=== PATIENT | female | born 1930 | race Caucasian/White ===

== ENCOUNTER 2018-11-30 09:34 | Day surgery (SDC) | payer MEDICARE ==
[~2018-11-30] VITALS: Ht 160 cm; Wt 52.2 kg
[~2018-11-30 09:34] MED LIST: ACETAMINOPHEN 325 MG TAB PO PRN; APAP325T4 PO; BALANCED SALT IRRIGATION SOLUTION 500ML BAG (FOR OR EYE MACHINE) As Ordered ONE; CEFUROXIME 1MG/0.1ML INTRACAMERAL INJ As Ordered ONE; CYCLOPENTOLATE 2% OPHTH SOLN 2ML BTL OS ONE; DESL5TAB4 PO; ESTR0.1C5 VA; FLON1SPR; GABA-1171 PO; HEALON DUET PRO(HEALON 10MG/ML 0.55ML & HEALON ENDOCOAT 30MG/ML 0.85ML) As Ordered ONE; LEVO25TA5 PO; LIDOCAINE 1% SDV 5 ML VIAL As Ordered ONE; LIDOCAINE 3.5 % 1ML OPHTH TOPICAL GEL OU ONE; LOSA50TA5 PO; METO1TAB32 PO; MIDAZOLAM INJ 2 MG/2 ML VIAL (J2250) As Ordered ONE; MULTCAP PO; OFLOXACIN 0.3 % (OCUFLOX) OPTH SOL 5ML OS ONE; OMEP20CA3 PO; PHENYLEPHRINE 2.5% OPHTH SOL 2ML OS ONE; PHENYLEPHRINE HCL 10 % OPHTH. SOL 5ML OS PRN; POVIDONE-IODINE 5% OPHTH PREP SOL 30ML As Ordered ONE; PRAV10TA3 PO; PROAAER10 INH; PROPARACAINE 0.5% OPHTH SOL 15ML OS PRN; SERT25TA85 PO; TROPICAMIDE 1% OPHTH SOLN 2ML OS ONE; VITAD1000T PO; ZOLP10TA2 PO; fentaNYL 100 MCG/2 ML INJECTION (J3010) As Ordered ONE
[2018-11-30] MEDS ORDERED: AcetaZOLAMIDE 500 MG ER CAP As Ordered ONE (12:51)
[2018-11-30] MEDS ORDERED: TRIMETHOBENZAMIDE 300 MG CAP PO PRN (13:00)
[2018-11-30] MEDS ORDERED: KETOROLAC 0.5% OPHTH SOLN OS ONE (13:00)
[2018-11-30] MEDS ORDERED: AcetaZOLAMIDE 500 MG ER CAP PO ONE (13:00)
[2018-11-30 13:05] VITALS: BP 150/74
--- NOTE | 2018-11-30 15:38 | RO ---
DATE OF PROCEDURE: 11/30/2018 PREPROCEDURE DIAGNOSIS: Age-related nuclear cataract left eye. POSTPROCEDURE DIAGNOSIS: Age-related nuclear cataract left eye. PROCEDURE: Phacoemulsification and posterior chamber intraocular lens implantation. The lens used was AU00T0, 18.5 diopter. SURGEON: Gaviota Ramírez MD CONTROL MANAGER: ANESTHESIA: Topical with sedation. DESCRIPTION OF PROCEDURE: The patient was prepped and draped in the usual fashion. A lid speculum was placed between the lids. The eye was fixated. A stab incision was made to the anterior chamber, and 1% nonpreserved lidocaine was instilled. Then, viscoelastic was instilled. The eye was re-fixated. A 2.75 mm sapphire keratome was used to make a clear corneal temporal limbal incision. Capsulorrhexis was begun with a 30-gauge bent needle and then carried out in a circular fashion with capsulorrhexis forceps. The lens was hydrodissected, and then the phacoemulsification unit was used to make a groove in the nucleus in two meridians. The nucleus was then cracked into four quadrants. Each quadrant was removed with the phacoemulsification unit. Any remaining cortex was removed with the irrigation and aspiration (I and A) unit. Capsular bag was refilled with viscoelastic. A posterior chamber intraocular lens was placed in the capsular bag without difficulty. Any remaining viscoelastic was removed with the I and A unit. The wound was hydrated, and Miochol and cefuroxime were instilled into the anterior chamber. The patient tolerated the procedure well and went to the recovery room in stable condition.
--- NOTE | 2018-12-01 00:45 | ECGEPIP ---
Stationary ECG Study [facility] Test Date: 2018-11-30 Pat Name: GREGG MCCOY Department: Room: - Gender: F Hall Monitor: KARIE : 1930 Requested By: Alexx Gilbert Order Number: [id number] Reading MD: Titus Wilson Measurements Intervals [place] Rate: 51 P: [place]: 0 QRS: -62 QRSD: 162 T: 88 QT: 466 QTc: 432 Interpretive Statements THIS SEEMS TO BE NORMAL SINUS RHYTHM WITH FIRST-DEGREE AV BLOCK AND PROBABLY MOBITZ 1 SECOND-DEGREE AV BLOCK MARKED LEFT AXIS DEVIATION INTRAVENTRICULAR CONDUCTION DELAY NO PRIOR TRACING FOR COMPARISON Electronically Signed On 12-01-2018 0:44:45 EDT by Titus Wilson
== END 2018-11-30 13:07 | disposition home or self-care (01) ==
LOC: M SDC 09:34
PROVIDERS: ATTEND Ophthalmology
DX: H25.12 Age-related nuclear cataract, left eye (principal); I10 Essential (primary) hypertension; E78.5 Hyperlipidemia, unspecified; E03.9 Hypothyroidism, unspecified; Z88.8 Allergy status to other drugs, medicaments and biological substances; Z79.899 Other long term (current) drug therapy; F41.9 Anxiety disorder, unspecified
CPT/HCPCS: 66984; 92015; 93005; J2250; J3010; V2632

== ENCOUNTER 2018-12-07 10:02 | Day surgery (SDC) | payer MEDICARE ==
[~2018-12-07] VITALS: Ht 160 cm; Wt 53.9 kg
[~2018-12-07 10:02] MED LIST changes: +CYCLOPENTOLATE 2% OPHTH SOLN 2ML BTL OD ONE; -CYCLOPENTOLATE 2% OPHTH SOLN 2ML BTL OS ONE; +OFLOXACIN 0.3 % (OCUFLOX) OPTH SOL 5ML OD ONE; -OFLOXACIN 0.3 % (OCUFLOX) OPTH SOL 5ML OS ONE; +PHENYLEPHRINE 2.5% OPHTH SOL 2ML OD ONE; -PHENYLEPHRINE 2.5% OPHTH SOL 2ML OS ONE; +PHENYLEPHRINE HCL 10 % OPHTH. SOL 5ML OD PRN; -PHENYLEPHRINE HCL 10 % OPHTH. SOL 5ML OS PRN; +PROPARACAINE 0.5% OPHTH SOL 15ML OD PRN; -PROPARACAINE 0.5% OPHTH SOL 15ML OS PRN; +TROPICAMIDE 1% OPHTH SOLN 2ML OD ONE; -TROPICAMIDE 1% OPHTH SOLN 2ML OS ONE
[2018-12-07] MEDS ORDERED: ONDANSETRON 4MG/2ML VIAL (J2405) As Ordered ONE (11:02)
[2018-12-07] MEDS ORDERED: TRIMETHOBENZAMIDE 300 MG CAP PO PRN (11:30)
[2018-12-07] MEDS ORDERED: AcetaZOLAMIDE 500 MG ER CAP PO ONE (11:30)
[2018-12-07 11:33] VITALS: BP 170/93
[2018-12-07] MEDS: KETOROLAC 0.5% OPHTH SOLN OD ONE ×2 (11:43→11:45)
--- NOTE | 2018-12-07 14:01 | RO ---
DATE OF PROCEDURE: 12/07/2018 PREPROCEDURE DIAGNOSIS: Age-related nuclear cataract right eye. POSTPROCEDURE DIAGNOSIS: Age-related nuclear cataract right eye. PROCEDURE: Phacoemulsification and posterior chamber intraocular lens implantation. The lens used was AU00T0, 19.0 diopter. SURGEON: Gaviota Ramírez MD WORK MEASUREMENT ENGINEER: ANESTHESIA: Topical with sedation. DESCRIPTION OF PROCEDURE: The patient was prepped and draped in the usual fashion. A lid speculum was placed between the lids. The eye was fixated. A stab incision was made to the anterior chamber, and 1% nonpreserved lidocaine was instilled. Then, viscoelastic was instilled. The eye was re-fixated. A 2.75 mm sapphire keratome was used to make a clear corneal temporal limbal incision. Capsulorrhexis was begun with a 30-gauge bent needle and then carried out in a circular fashion with capsulorrhexis forceps. The lens was hydrodissected, and then the phacoemulsification unit was used to make a groove in the nucleus in two meridians. The nucleus was then cracked into four quadrants. Each quadrant was removed with the phacoemulsification unit. Any remaining cortex was removed with the irrigation and aspiration (I and A) unit. Capsular bag was refilled with viscoelastic. A posterior chamber intraocular lens was placed in the capsular bag without difficulty. Any remaining viscoelastic was removed with the I and A unit. The wound was hydrated, and Miochol and cefuroxime were instilled into the anterior chamber. The patient tolerated the procedure well and went to the recovery room in stable condition.
== END 2018-12-07 11:50 | disposition home or self-care (01) ==
LOC: M SDC 10:02 → EDUNIT# 12:15
PROVIDERS: ATTEND Ophthalmology
DX: H25.11 Age-related nuclear cataract, right eye (principal); E03.9 Hypothyroidism, unspecified; F41.9 Anxiety disorder, unspecified; Z88.8 Allergy status to other drugs, medicaments and biological substances; Z79.899 Other long term (current) drug therapy
CPT/HCPCS: 66984; 92015; J2250; J2405; J3010; V2632

== ENCOUNTER → 2020-03-18 | Outpatient (CLI) | payer MEDICARE ==
[~2020-03-18] MED LIST changes: -ACETAMINOPHEN 325 MG TAB PO PRN; +AMLO1TAB24 PO; -BALANCED SALT IRRIGATION SOLUTION 500ML BAG (FOR OR EYE MACHINE) As Ordered ONE; -CEFUROXIME 1MG/0.1ML INTRACAMERAL INJ As Ordered ONE; +CHOL100029 PO; +COZA50TA PO; -CYCLOPENTOLATE 2% OPHTH SOLN 2ML BTL OD ONE; +D31000TA2 PO; +DESL1TAB3 PO; -DESL5TAB4 PO; +ELIQ2.5T PO; +ESTR0.1C5 PV; -ESTR0.1C5 VA; -FLON1SPR; +FLON1SPR NARES; -HEALON DUET PRO(HEALON 10MG/ML 0.55ML & HEALON ENDOCOAT 30MG/ML 0.85ML) As Ordered ONE; +IRON65TA2 PO; +LEVO50TA5 PO; -LIDOCAINE 1% SDV 5 ML VIAL As Ordered ONE; -LIDOCAINE 3.5 % 1ML OPHTH TOPICAL GEL OU ONE; +LOSA50TA88 PO; -MIDAZOLAM INJ 2 MG/2 ML VIAL (J2250) As Ordered ONE; -OFLOXACIN 0.3 % (OCUFLOX) OPTH SOL 5ML OD ONE; +OMEP1CAP73 PO; -OMEP20CA3 PO; -PHENYLEPHRINE 2.5% OPHTH SOL 2ML OD ONE; -PHENYLEPHRINE HCL 10 % OPHTH. SOL 5ML OD PRN; -POVIDONE-IODINE 5% OPHTH PREP SOL 30ML As Ordered ONE; -PROPARACAINE 0.5% OPHTH SOL 15ML OD PRN; -TROPICAMIDE 1% OPHTH SOLN 2ML OD ONE; +VITA-243 PO; -VITAD1000T PO; -fentaNYL 100 MCG/2 ML INJECTION (J3010) As Ordered ONE
== END ==
LOC: M LABSMTC 13:12
PROVIDERS: ATTEND Anesthesiology
DX: Z11.59 Encounter for screening for other viral diseases (principal)
CPT/HCPCS: C9803; U0002

== ENCOUNTER 2020-03-19 14:02 | Day surgery (SDC) | payer MEDICARE ==
[~2020-03-19] VITALS: Ht 149.9 cm; Wt 47.7 kg
[~2020-03-19 14:02] MED LIST changes: -AMLO1TAB24 PO; -COZA50TA PO; -D31000TA2 PO; -ELIQ2.5T PO; -IRON65TA2 PO; -LEVO50TA5 PO; -LOSA50TA88 PO; -VITA-243 PO
[2020-03-19] MEDS ORDERED: LIDOCAINE 1% SDV 30ML VIAL As Ordered ONE (14:48)
[2020-03-19] MEDS ORDERED: MUPIROCIN 2% OINT 22 GM TUBE As Ordered ONE (14:48)
[2020-03-19] MEDS ORDERED: ISOVUE-300 61% 50ML VIAL As Ordered ONE ×2 (14:49→17:01)
[2020-03-19] MEDS ORDERED: VITA-243 PO (14:51)
[2020-03-19] MEDS ORDERED: ELIQ2.5T PO (14:51)
[2020-03-19] MEDS ORDERED: IRON65TA2 PO (14:51)
[2020-03-19] MEDS ORDERED: ceFAZolin 1GM VIAL (J0690 PER 500MG) As Ordered ONE (14:59)
[2020-03-19] MEDS ORDERED: fentaNYL 100 MCG/2 ML INJECTION (J3010) As Ordered ONE (16:59)
[2020-03-19] MEDS ORDERED: ONDANSETRON 4MG/2ML VIAL As Ordered ONE ×2 (16:59→19:49)
[2020-03-19] MEDS ORDERED: propofoL 200 MG/20 ML VIAL As Ordered ONE (16:59)
[2020-03-19] MEDS ORDERED: MIDAZOLAM INJ 2MG/2ML VIAL (J2250 PER 1MG) As Ordered ONE (16:59)
[2020-03-19] MEDS ORDERED: LIDOCAINE 2% 100MG/5ML SDV (FOR ANES.) As Ordered ONE (17:55)
[2020-03-19] MEDS ORDERED: ceFAZolin 1GM VIAL (J0690 PER 500MG) IV ONE (17:55)
[2020-03-19] MEDS ORDERED: PILL CUTTER 1 EACH XX ONE (19:21)
[2020-03-19] MEDS ORDERED: amLODIPine 5 MG TAB As Ordered ONE (19:21)
[2020-03-19] MEDS ORDERED: amLODIPine 5 MG TAB PO ONE ×2 (19:30→20:55)
[2020-03-19] MEDS ORDERED: LOSA50TA88 PO (19:34)
[2020-03-19] MEDS ORDERED: LEVO50TA5 PO (19:34)
[2020-03-19] MEDS ORDERED: D31000TA2 PO (19:37)
[2020-03-19] MEDS ORDERED: zolPIDEM TARTRATE 5 MG TAB PO PRN (19:45)
[2020-03-19] MEDS ORDERED: fentaNYL 100 MCG/2 ML INJECTION (J3010) IV PRN (20:00)
[2020-03-19] MEDS ORDERED: ONDANSETRON 4MG/2ML VIAL IV PRN (20:00)
[2020-03-19] MEDS ORDERED: LR 1,000 ML IV SCH (20:00)
[2020-03-19] MEDS ORDERED: METOCLOPRAMIDE INJ 10MG/2ML VIAL (J2765 PER 1) As Ordered ONE (20:20)
[2020-03-19] MEDS: ACETAMINOPHEN TAB 650MG DOSE (2X325MG) PO PRN (20:25)
[2020-03-19] MEDS ORDERED: METOCLOPRAMIDE INJ 10MG/2ML VIAL (J2765 PER 1) IV ONE (20:30)
[2020-03-19] MEDS ORDERED: LOSARTAN 50MG TABLET PO SCH (21:00)
[2020-03-19 21:45] VITALS: BP 148/76
[2020-03-19] MEDS ORDERED: LOSARTAN 50MG TABLET PO ONE (22:15)
[2020-03-19 23:05] VITALS: BP 190/100
[2020-03-19] MEDS: GABAPENTIN 100 MG CAP PO SCH (23:05)
[2020-03-19] MEDS: PRAVASTATIN 10 MG TAB PO SCH (23:05)
[2020-03-20] VITALS (8 sets, daily range): BP systolic 124–168; BP diastolic 64–97
[2020-03-20] MEDS ORDERED: SLF 3 ML SYR IV PRN
[2020-03-20] MEDS: LEVOTHYROXINE 50MCG TABLET (0.05MG) PO SCH (05:38)
[2020-03-20 06:08] LABS: ALBUMIN 3.8 GM/DL (3.2-5.2); BLOOD UREA NITROGEN 13 MG/DL (7-18); CALCIUM LEVEL 9.2 MG/DL (8.8-10.2); CARBON DIOXIDE LEVEL 28 MEQ/L (21-32); CHLORIDE LEVEL 101 MEQ/L (98-107); CREATININE FOR GFR 0.75 MG/DL (0.55-1.30); GLOMERULAR FILTRATION RATE > 60.0 (>32); GLUCOSE, FASTING 90 MG/DL (70-100); PHOSPHORUS LEVEL 3.5 MG/DL (2.5-4.9); POTASSIUM SERUM 3.1 MEQ/L (3.5-5.1); SODIUM LEVEL 136 MEQ/L (136-145)
[2020-03-20] MEDS: SLF 3 ML SYR IV SCH ×3 (06:35→21:04)
[2020-03-20] MEDS: MULTIVITAMINS/MINERALS THERAP 1 TAB PO SCH (08:45)
[2020-03-20] MEDS: FERROUS SULFATE 325MG TAB PO SCH (08:45)
[2020-03-20] MEDS: CALCIUM/VITAMIN D 500 MG TAB PO SCH (08:45)
[2020-03-20] MEDS: OMEPRAZOLE 20 MG CAP PO SCH (08:45)
[2020-03-20] MEDS: ASCORBIC ACID 500 MG TAB PO SCH (08:45)
[2020-03-20] MEDS: SERTRALINE HCL 25 MG TABLET PO SCH (08:45)
[2020-03-20] MEDS: amLODIPine 5 MG TAB PO SCH (08:45)
[2020-03-20] MEDS: GABAPENTIN 100 MG CAP PO SCH ×4 (08:45→21:03)
--- NOTE | 2020-03-20 08:55 | REPVR ---
PROCEDURE INFORMATION: Exam: XR Chest, 2 Views Exam date and time: 03/20/20 (8:08am) Age: 89 years old Clinical indication: Cardiac pacemaker placement or adjustment. Pacemaker implanted. TECHNIQUE: Imaging protocol: XR of the chest Views: 2 views. COMPARISON: Portable CXR of 03/19/20 (7:11pm) FINDINGS: Comparison is made with a portable CXR done approx. 13 hours ago. Stable cardiomegaly. Single-chamber pacemaker electrode, with its tip in the RV. No pneumothorax. No focal infiltrates. No pleural effusions. Mild elevation of the right hemidiaphragm. IMPRESSION: No acute chest pathology. No focal infiltrates. No pleural effusions. No pneumothorax. Single-chamber pacemaker electrode, with its tip in the RV. Electronically signed by: Shakira Disla On 03/20/2020 08:55:55 AM
[2020-03-20] MEDS ORDERED: LORATADINE 10 MG TAB PO SCH (09:00)
[2020-03-20] MEDS ORDERED: LORATADINE 5 MG HALF-TAB PO SCH (09:00)
[2020-03-20] MEDS ORDERED: POTASSIUM CHLORIDE 10 MEQ SR TABLET PO ONE (10:30)
[2020-03-20] MEDS ORDERED: AMLO1TAB24 PO (10:55)
[2020-03-20] MEDS ORDERED: COZA50TA PO (10:55)
[2020-03-20] MEDS ORDERED: LOSARTAN 50MG TABLET PO SCH (21:00)
[2020-03-20] MEDS: ACETAMINOPHEN TAB 650MG DOSE (2X325MG) PO PRN (21:03)
[2020-03-20] MEDS: APIXABAN 2.5 MG TAB (ELIQUIS) PO SCH (21:03)
[2020-03-20] MEDS: PRAVASTATIN 10 MG TAB PO SCH (21:03)
[2020-03-21] VITALS: BP 145/88
[2020-03-21 04:00] VITALS: BP 142/88
[2020-03-21] MEDS: SLF 3 ML SYR IV SCH ×2 (05:18→13:09)
[2020-03-21] MEDS: LEVOTHYROXINE 50MCG TABLET (0.05MG) PO SCH (05:18)
[2020-03-21 06:42] LABS: CALCIUM LEVEL 9.3 MG/DL (8.8-10.2); CREATININE FOR GFR 0.96 MG/DL (0.55-1.30); GLOMERULAR FILTRATION RATE 58.4 (>32); POTASSIUM SERUM 4.3 MEQ/L (3.5-5.1)
[2020-03-21 08:00] VITALS: BP 116/72
[2020-03-21] MEDS ORDERED: LORATADINE 10 MG TAB PO SCH (09:00)
[2020-03-21] MEDS: GABAPENTIN 100 MG CAP PO SCH ×2 (09:32→13:09)
[2020-03-21] MEDS: ASCORBIC ACID 500 MG TAB PO SCH (09:32)
[2020-03-21] MEDS: MULTIVITAMINS/MINERALS THERAP 1 TAB PO SCH (09:32)
[2020-03-21] MEDS: APIXABAN 2.5 MG TAB (ELIQUIS) PO SCH (09:32)
[2020-03-21] MEDS: SERTRALINE HCL 25 MG TABLET PO SCH (09:32)
[2020-03-21] MEDS: CALCIUM/VITAMIN D 500 MG TAB PO SCH (09:32)
[2020-03-21] MEDS: FERROUS SULFATE 325MG TAB PO SCH (09:32)
[2020-03-21 09:33] VITALS: BP 116/72
[2020-03-21] MEDS: amLODIPine 5 MG TAB PO SCH (09:33)
[2020-03-21] MEDS: OMEPRAZOLE 20 MG CAP PO SCH (09:33)
[2020-03-21 12:00] VITALS: BP 140/62
[2020-03-26 10:08] LABS: RENIN LEVEL 0.606 ng/mL/hr (0.167-5.380)
--- NOTE | 2020-04-16 15:08 | ECGEPIP ---
[facility] Test Date: 2020-03-19 Pat Name: GREGG MCCOY Department: Room: [place] [address] Gender: Female Radiology Tech: [facility] [place] : 1930 Requested By: Hubert Aquino Order Number: [id number] Reading MD: Xin Garcia Measurements Intervals [place] Rate: 70 P: 99 DC: 270 QRS: -77 QRSD: 174 T: 104 QT: 452 QTc: 490 Interpretive Statements ELECTRONIC VENTRICULAR PACEMAKER ABNORMAL RHYTHM ECG SUSPECT UNDERLYING AFIB SEE SCANNED DOWNTIME REPORT
--- NOTE | 2020-04-17 07:55 | REP ---
PORTABLE CHEST COMPARISON: None. REASON FOR EXAM: Follow-up pacemaker insertion. TECHNIQUE: The technique utilized in obtaining the radiograph has magnified the cardiac silhouette and accentuated the interstitial markings. FINDINGS: There is cardiomegaly accentuated by technique. There is a single-chamber bipolar pacemaker device in place. The lead is contiguous and appropriate. The lung rahman are clear. There is no pneumothorax. The pleural angles are sharp. The osseous structures are within normal limits. IMPRESSION: Status post pacemaker insertion and cardiomegaly without evidence of acute cardiopulmonary disease. MTDD
--- NOTE | 2020-04-17 07:56 | REP ---
SINGLE SPOT VIEW OF THE CHEST OBTAINED DURING PACEMAKER INSERTION FINDINGS: A single spot view of the chest was obtained in my absentia during single- chamber bipolar pacemaker device insertion. Fluoroscopy time provided was 2 minutes and 30 seconds. The spot view shows the lead to be contiguous and appropriate. MTDD
--- NOTE | 2020-05-03 06:28 | RO ---
DATE OF OPERATION: 03/19/2020 PREOPERATIVE DIAGNOSIS: Complete heart block, symptomatic bradycardia. POSTOPERATIVE DIAGNOSIS: Complete heart block, symptomatic bradycardia. FINDINGS: Complete heart block, symptomatic bradycardia. PROCEDURE: Implantation of a Medtronic single-chamber pacemaker. SURGEON: Hubert Aquino M.D. QUALITY PROCESS LEAD: None. ANESTHESIA: Lidocaine 1% local/monitored anesthetic care. SPECIMENS: None. ESTIMATED BLOOD LOSS: Less than 5 mL. BLOOD PRODUCTS: None. DRAINS: None. COMPLICATIONS: None. PROCEDURE DESCRIPTION: Patient was prepped and draped over the left pectoral region. 3M [place] film was applied. Lidocaine 1% was used for local anesthetic. A left subclavian venogram was performed using diluted Isovue injected via a peripheral vein in the left upper extremity for a total volume of 20 mL of the diluted Isovue. This was used to obtain percutaneous venous access under fluoroscopic guidance into the extrathoracic portion of the left subclavian vein using a micropuncture. This was then exchanged for a guidewire that came with the 7-Bruneian sheath. Next, the PEAK PlasmaBlade was used to make incision through the skin approximately 2-1/2 inches in length 1 cm below the skin incision site of the guidewire. The PEAK PlasmaBlade was used to get through the fatty layer and the fibrous Lady's fascia. The pacemaker pocket was then formed in a caudal direction using blunt dissection using two fingers to separate the Lady's fascia from the prepectoral fascia. Next, the guidewire was pulled through the skin using the incision site. Next, a 7-Bruneian peel-away sheath introducer was placed into the left subclavian vein over the guidewire, and the guidewire and introducer were removed, leaving the sheath in place. This was used for vein access for the right ventricular lead. The right ventricular lead was placed into the right ventricle apex position under fluoroscopic guidance and secured with a total of eight turns. This position was found to be electrically and anatomically satisfactory, and no diaphragmatic stimulatoin could be palpated on either side at 8 volts high-output pacing. Next, the ventricle lead was secured to the pectoral muscle with a supplied tie-down sleeve using two individual sutures consisting of 0 Ethibond secured to the pectoral muscle. Another 0 Ethibond suture was placed to the pectoral muscle to serve as the tie-down for the pacemaker pulse generator. The internal pin was then placed into the header of the new pacemaker pulse generator and secured by tightening the set screw using the hex screwdriver. The excess lead material was placed below and the pacemaker pulse generator on top into the pacemaker pocket. The pulse generator was the secured to the pectoral muscle with a previously placed 0 Ethibond suture. The deep layer was closed individual sutures consisting of 2-0 Vicryl. A few additional 3-0 Vicryl sutures were used to help approximate the more superficial layer. The skin was then closed using sherley. Patient tolerated the procedure well without any immediate complications. The pacemaker pulse generator implant was a Medtronic [place] XT SR MRI Surescan, model #W1SR01, which had serial #[id number]. The pacemaker lead implanted was a Medtronic model 4076-52 cm, which had serial #[id number]. In bipolar configuration using the pulse analyzer, the capture threshold was 0.5 volts at 0.4 milliseconds with lead impedance of 507 ohms and R-wave amplitude of 8.0 millivolts. Device-based testing in the operating room showed R-wave of 7.5 millivolts with lead impedance of 589 ohms and capture threshold of 0.5 volts at 0.4 msec. [facility]
--- NOTE | 2020-05-03 13:46 | DS ---
DATE OF ADMISSION: 03/19/2020 DATE OF DISCHARGE: 03/21/2020 FINAL DIAGNOSES: 1. Complete heart block. 2. Symptomatic bradycardia. 3. Status post pacemaker in situ. 4. Systemic hypertension. 5. Chronic atrial fibrillation. 6. Hypercholesterolemia. HISTORY OF PRESENT ILLNESS: Francisca Centeno is an 89-year-old woman who was initially brought in as a same-day surgery procedure 03/19/2020 for elective placement of a single-chamber pacemaker in the management of intermittent complete heart block with symptomatic bradycardia (presyncope/syncope). She has severely uncontrolled hypertension and chronic atrial fibrillation. She underwent implantation of Medtronic single-chamber pacemaker successfully on 03/19/2020, performed by Dr. Aquino. Her postoperative course was uncomplicated. She was supposed to go home , but the daughter refused to take the patient home, because she felt that her mother (the patient) was unsafe and unfit to go home. Therefore, the patient's stay was extended by another day, and occupational therapy and physical therapy assessments were requested for a home safety evaluation. The next day (03/21/2020), the daughter was agreeable to take the patient home. Home healthcare was ordered. While in hospital, the patient's blood pressure was initially uncontrolled, and medication adjustments were performed. The patient's losartan was increased to 100 mg every night, and amlodipine 5 mg daily was added. FOLLOWUP: Patient will have a pacemaker incision with removal of sherley at my office next week. She will have a followup with her photo printer, Dr. Titus Wilson, in about 1 month. She will continue her usual followup with her primary care provider as scheduled. OPERATIONS PERFORMED: Implantation of Medtronic single-chamber pacemaker 03/19/2020. DISCHARGE MEDICATIONS: - acetaminophen 325 mg every 4 hours as needed for pain - albuterol sulfate HFA two puffs as needed for shortness of breath - amlodipine 5 mg daily - Eliquis 2.5 mg twice a day - vitamin C 500 mg daily - vitamin D 1000 units daily - desloratadine 5 mg daily - estradiol 42.5 gram cream applied once a week - ferrous sulfate 325 mg daily - Flonase two sprays both nares daily as needed for nasal congestion - gabapentin 100 mg four times a day - levothyroxine 50 mg daily - losartan 100 mg every night - multivitamin one daily - omeprazole 20 mg daily as needed - pravastatin 10 mg every night - sertraline 25 mg daily - zolpidem 10 mg at bedtime Total time spent preparing this patient's discharge, including this discharge summary, was 25 minutes. MTDD
== END 2020-03-21 17:34 | disposition home or self-care (01) ==
LOC: M SDC 14:02 → M PCU 21:30 → M SDC 03-21 17:34
PROVIDERS: ATTEND Internal Medicine Cardiovascular Disease
DX: I44.2 Atrioventricular block, complete (principal); R00.1 Bradycardia, unspecified; I10 Essential (primary) hypertension; E03.9 Hypothyroidism, unspecified; F41.9 Anxiety disorder, unspecified; K21.9 Gastro-esophageal reflux disease without esophagitis; Z79.899 Other long term (current) drug therapy; Z88.5 Allergy status to narcotic agent; Z88.8 Allergy status to other drugs, medicaments and biological substances; Z91.018 Allergy to other foods
CPT/HCPCS: 33207; 36415; 71045; 71046; 76000; 80048; 80069; 82088; 84244; 93005; 97161; 97165; 97530; C1786; C1898; J0690; J2250; J2405; J2765; J3010; Q9967